=== PATIENT | female | born 1995 | race Two or more races ===

== ENCOUNTER 2017-05-05 02:30 | Emergency (ER) | payer SELFPAY ==
--- NOTE | 2017-05-05 03:50 | ER Document Report ---
ED General - General Chief Complaint: Abdominal Pain Stated Complaint: ABDOMINAL PAIN WITH NAUSEA Time Seen by Provider: 05/05/17 03:07 Notes: Patient is a 22-year-old female presents with complaint of pain is mainly in the right lower quadrant. She says she has had this pain several times over the course of several months. She said each time it lasts usually a few hours. Today went on more than 4 hours no where she came to the ER. No vomiting. No diarrhea. No fevers. No abnormal vaginal discharge or bleeding. No dysuria. She is sexually active. She does not use control. She does not think she is . No other complaints at this time. TRAVEL OUTSIDE OF THE [place] IN LAST 30 DAYS: No - Related Data Allergies/Adverse Reactions: No Known Allergies Allergy (Unverified 05/05/17 04:43) Past Medical History - Social History Smoking Status: Never Smoker Frequency of alcohol use: None Drug Abuse: None Family History: Reviewed & Not Pertinent Review of Systems - Review of Systems Notes: My Normal Review Basic REVIEW OF SYSTEMS: CONSTITUTIONAL : Denies fever, chills, or sweats. Denies recent illness. RESPIRATORY: Denies cough, cold, or chest congestion. Denies shortness of breath, difficulty breathing, or wheezing. GASTROINTESTINAL: Right lower abdominal pain. Denies nausea, vomiting, or diarrhea. GENITOURINARY: Denies difficulty urinating, painful urination, burning, frequency, or blood in urine. FEMALE GENITOURINARY: Denies vaginal bleeding, abnormal or irregular periods. MUSCULOSKELETAL: Denies neck or back pain or joint pain or swelling. SKIN: Denies rash or skin lesions. NEUROLOGICAL: Denies altered mental status or loss of consciousness. Denies headache. Denies weakness or paralysis or loss of use of either side. Denies problems with gait or speech. Denies sensory or motor loss. ALL OTHER SYSTEMS REVIEWED AND NEGATIVE. Physical Exam - Vital signs Vitals: Temp Pulse Resp BP Pulse Ox 98.3 F 95 17 128/84 H 97 05/05/17 02:30 05/05/17 02:30 05/05/17 02:30 05/05/17 02:30 05/05/17 02:30 - Notes Notes: General Appearance: Well nourished, alert, cooperative, no acute distress, no obvious discomfort. Well appearing. Vitals: reviewed, See vital signs table. Head: no swelling or tenderness to the head Eyes: PERRL, EOMI, Conjuctiva clear Mouth: No decreasd moisture Lungs: No wheezing, No rales, No rhonci, No accessory muscle use, good air exchange bilaterally. Heart: Normal rate, Regular rythm, No murmur, no rub Abdomen: Normal BS, soft, No rigidity, patient does not have pain made by me pushing of her abdomen. When I push over the right lower quadrant where her pain is she says that the pushing on her abdomen does not make her pain any worse than it is without me pushing on her abdomen., No guarding, no rebound, no abdominal masses, no organomegaly Extremities: strength 5/5 in all extremities, good pulses in all extremities, no swelling or tenderness in the extremities, no edema. Skin: warm, dry, appropriate color, no rash Neuro: speech clear, oriented x 3, normal affect, responds appropriately to questions. Course - Re-evaluation Re-evalutation: 05/05/17 06:45 Patient has a large right ovarian cyst. This makes sense with her history of recurrent pain over last several months over the right lower portion of her abdomen. She has good flow to the ovary. No evidence of torsion. I encouraged her follow-up with a spindle setter. I talked about the importance of following up and also to have repeat ultrasound in 6-12 weeks. I informed her that it is unlikely to be cancerous however this cannot be fully ruled out without repeat ultrasounds. Also informed her that the spindle setter can talk about further treatment options in regards to her cyst if it continues to cause her pain. I talked about ovarian torsion informed her that having large ovarian cyst is a risk factor for torsion therefore she has severe onset of pain that she must return to ER immediately. Patient agrees with plan will be discharged home. Dictation of this chart was performed using voice recognition software; therefore, there may be some unintended grammatical errors. - Vital Signs Vital signs: Temp Pulse Resp BP Pulse Ox 98.3 F 95 17 128/84 H 97 05/05/17 02:30 05/05/17 02:30 05/05/17 02:30 05/05/17 02:30 05/05/17 02:30 - Laboratory Result Diagrams: 05/05/17 03:45 05/05/17 03:45 Laboratory results interpreted by me: 05/05/17 05/05/17 05/05/17 03:45 03:45 04:06 WBC 11.9 H RBC 5.34 H Hgb 11.3 L MCV 68 L MCH 21.1 L MCHC 31.2 L RDW 16.9 H Seg Neutrophils % 78.9 H Absolute Neutrophils 9.4 H Glucose 119 H Urine Protein 30 H Urine Urobilinogen 2.0 H Discharge - Discharge Clinical Impression: Ovarian cyst Qualifiers: Laterality: right Qualified Code(s): N83.201 - Unspecified ovarian cyst, right side Abdominal pain Qualifiers: Abdominal location: right lower quadrant Qualified Code(s): R10.31 - Right lower quadrant pain Condition: Good Disposition: HOME, SELF-CARE Additional Instructions: You have a large ovarian cyst on the right side. This is the likely cause of your recurrent pain. Please be aware that a large cyst can sometimes cause a twisting of the ovary that leads to decreased blood flow to the ovary, This would cause severe pain. If you have sudden onset severe pain, fevers, heavy vaginal bleeding, or vomiting, you must return to the ER immediately. You should have a repeat ultrasound in 6-12 weeks to make sure the cyst is not increasing in size and not having any concerning changes. Please call the Senior [facility]ris Analyst to make a close follow up appointment for reevaluation and further treatment options. Referrals: OTILIO GERARDO MD [ACTIVE STAFF] - Follow up as needed
[2017-05-05 03:55] LABS: ABSOLUTE BASOPHILS # (AUTO) 0.1 10^3/uL (0.0-0.2); ABSOLUTE EOSINOPHILS # (AUTO) 0.1 10^3/uL (0.0-0.6); ABSOLUTE LYMPHOCYTES (AUTO) 1.8 10^3/uL (0.5-4.7); ABSOLUTE MONOCYTES (AUTO) 0.5 10^3/uL (0.1-1.4); ABSOLUTE NEUT (AUTO) 9.4 10^3/uL (1.7-8.2); BASOPHILS % (AUTO) 0.6 % (0-2); EOSINOPHILS % (AUTO) 1.1 % (0-6); HEMATOCRIT 36.2 % (36.0-47.0); HEMOGLOBIN 11.3 g/dL (12.0-15.5); HGB HCT DIFFERENCE -2.3; LYMPHOCYTES % (AUTO) 14.9 % (13-45); MEAN CORPUSCULAR HEMOGLOBIN 21.1 pg (27.0-33.4); MEAN CORPUSCULAR HGB CONC 31.2 g/dL (32.0-36.0); MEAN CORPUSCULAR VOLUME 68 fl (80-97); MONOCYTES % (AUTO) 4.5 % (3-13); RED BLOOD COUNT 5.34 10^6/uL (3.72-5.28); RED CELL DISTRIBUTION WIDTH 16.9 % (11.5-14.0); SEGMENTED NEUTROPHILS % (AUTO) 78.9 % (42-78); WHITE BLOOD COUNT 11.9 10^3/uL (4.0-10.5)
[2017-05-05 04:09] LABS: ALANINE AMINOTRANSFERASE 26 U/L (9-52); ALBUMIN 4.5 g/dL (3.5-5.0); ALKALINE PHOSPHATASE 95 U/L (38-126); ANION GAP 16 (5-19); ASPARTATE AMINO TRANSFERASE 20 U/L (14-36); BILIRUBIN,DIRECT 0.2 mg/dL (0.0-0.4); BILIRUBIN,TOTAL 0.3 mg/dL (0.2-1.3); BLOOD UREA NITROGEN 10 mg/dL (7-20); CALCIUM 9.9 mg/dL (8.4-10.2); CARBON DIOXIDE 23 mmol/L (22-30); CHLORIDE 105 mmol/L (98-107); CREATININE RESULT 0.71 mg/dL (0.52-1.25); GLUCOSE 119 mg/dL (75-110); POTASSIUM 3.9 mmol/L (3.6-5.0); TOTAL PROTEIN 7.9 g/dL (6.3-8.2)
[2017-05-05] MEDS ORDERED: KETOROLAC TROMETHAMINE INJ/PF 30 MG/1 ML SDV IV ONE (04:47)
[2017-05-05 04:50] LABS: AMORPHOUS SEDIMENT,URINE TRACE /HPF; APPEARANCE,URINE CLOUDY; BILIRUBIN,URINE NEGATIVE (NEGATIVE); GLUCOSE, URINE NEGATIVE (NEGATIVE); KETONES,URINE NEGATIVE (NEGATIVE); LEUKOCYTE ESTERASE,URINE NEGATIVE (NEGATIVE); NITRITE,URINE NEGATIVE (NEGATIVE); PROTEIN,URINE 30 mg/dL (NEGATIVE); URINE SPECIFIC GRAVITY 1.031
[2017-05-05] MEDS ORDERED: KETOROLAC TROMETHAMINE INJ/PF 30 MG/1 ML SDV IM ONE (04:59)
--- NOTE | 2017-05-05 06:26 | RADIOLOGY REPORT (SQ) ---
EXAM DESCRIPTION: U/S NON OB PEL TV W/DOPPLER CLINICAL HISTORY: 22 years, Female, right sided pain COMPARISON: None. TECHNIQUE: Transvaginal. LIMITATIONS: None. FINDINGS: 7.8 cm uterus, 0.1 cm thick endometrial stripe, 3.1 cm cervical length, 5.9 cm right ovary with 5.3 x 4.9 x 3.6 cm probably benign mildly complex avascular cystic component, and 2.6 cm left ovary appear otherwise normal size, shape, echotexture, and vascularity. No significant free fluid. IMPRESSION: 1. A 5.3 cm probably benign cystic component of the right ovary may indicate a hemorrhagic cyst or endometrioma. Cannot exclude other neoplasm. Ultrasound follow-up recommended in 6-12 weeks. Right ovary is at increased risk for developing torsion. 2. Endometrial hypoplasia. 2011 [employer]- All Rights Reserved
[2017-05-05 06:47] VITALS: BP 116/65
== END 2017-05-05 06:47 | disposition home or self-care (01) ==
LOC: ER 02:30
DX: N83.201 Unspecified ovarian cyst, right side (principal); R10.31 Right lower quadrant pain
CPT/HCPCS: 99284; 96372; 36415; 84703; 85025; 80053; 81001; 76830; 93976; J1885

== ENCOUNTER 2017-06-28 21:38 | Emergency (ER) | payer SELFPAY ==
[2017-06-29] MEDS ORDERED: ONDANSETRON HCL INJ/PF 4 MG/2 ML SDV IV ONE (00:04)
[2017-06-29] MEDS ORDERED: FENTANYL CITRATE INJ/PF 100 MCG/2 ML AMPUL IV ONE (00:04)
--- NOTE | 2017-06-29 00:06 | ER Document Report ---
ED General - General Chief Complaint: Abdominal Pain Stated Complaint: RIGHT SIDE PAIN Time Seen by Provider: 06/28/17 23:44 Mode of Arrival: Ambulatory Information source: Patient Notes: 22-year-old female history of right-sided ovarian cyst diagnosed in April presents with complaints of continued pain. Patient notes that the pain has been constant for the past month associated with intermittent nausea. Denies any fevers or chills notes the pain has worsened over the past 2 days with vomiting TRAVEL OUTSIDE OF THE [place] IN LAST 30 DAYS: No - HPI Onset: Other Onset/Duration: Persistent, Worse Quality of pain: Cramping Severity: Mild Pain Level: 1 Associated symptoms: Nausea, Vomiting Exacerbated by: Denies Relieved by: Denies Similar symptoms previously: Yes Recently seen / treated by doctor: Yes - Related Data Allergies/Adverse Reactions: No Known Allergies Allergy (Unverified 05/05/17 04:43) Past Medical History - Social History Smoking Status: Former Smoker Cigarette use (# per day): No Chew tobacco use (# tins/day): No Smoking Education Provided: No Frequency of alcohol use: None Drug Abuse: None Family History: Reviewed & Not Pertinent Patient has suicidal ideation: No Patient has homicidal ideation: No Renal/ Medical History: Denies: Hx Peritoneal Dialysis Review of Systems - Review of Systems Notes: REVIEW OF SYSTEMS: CONSTITUTIONAL : Denies fever, chills, or sweats. Denies recent illness. EENT: Denies eye, ear, throat, or mouth pain or symptoms. Denies nasal or sinus congestion or discharge. Denies throat, tongue, or mouth swelling or difficulty swallowing. CARDIOVASCULAR: Denies chest pain. Denies palpitations or racing or irregular heart beat. Denies ankle edema. RESPIRATORY: Denies cough, cold, or chest congestion. Denies shortness of breath, difficulty breathing, or wheezing. GASTROINTESTINAL: Admits to right lower quadrant abdominal pain GENITOURINARY: Denies difficulty urinating, painful urination, burning, frequency, blood in urine, or discharge. FEMALE GENITOURINARY: Denies vaginal bleeding, heavy or abnormal periods, irregular periods. Denies vaginal discharge or odor. MUSCULOSKELETAL: Denies back or neck pain or stiffness. Denies joint pain or swelling. SKIN: Denies rash, lesions or sores. HEMATOLOGIC : Denies easy bruising or bleeding. LYMPHATIC: Denies swollen, enlarged glands. NEUROLOGICAL: Denies confusion or altered mental status. Denies passing out or loss of consciousness. Denies dizziness or lightheadedness. Denies headache. Denies weakness or paralysis or loss of use of either side. Denies problems with gait or speech. Denies sensory loss, numbness, or tingling. Denies seizures. PSYCHIATRIC: Denies anxiety or stress. Denies depression, suicidal ideation, or homicidal ideation. ALL OTHER SYSTEMS REVIEWED AND NEGATIVE. PHYSICAL EXAMINATION: GENERAL: Well-appearing, well-nourished and in no acute distress. HEAD: Atraumatic, normocephalic. EYES: Pupils equal round and reactive to light, extraocular movements intact, conjunctiva are normal. ENT: Nares patent, oropharynx clear without exudates. Moist mucous membranes. NECK: Normal range of motion, supple without lymphadenopathy LUNGS: Breath sounds clear to auscultation bilaterally and equal. No wheezes rales or rhonchi. HEART: Regular rate and rhythm without murmurs ABDOMEN: Soft, nontender, nondistended abdomen. It is tender in the right pelvic region no guarding, no rebound. No masses appreciated. Female : deferred Musculoskeletal: Normal range of motion, no pitting or edema. No cyanosis. NEUROLOGICAL: Cranial nerves grossly intact. Normal speech, normal gait. Normal sensory, motor exams PSYCH: Normal mood, normal affect. SKIN: Warm, Dry, normal turgor, no rashes or lesions noted. Dictation was performed using [employer] voice recognition software Physical Exam - Vital signs Vitals: Temp Pulse Resp BP Pulse Ox 98.8 F 86 19 137/77 H 99 06/28/17 22:09 06/28/17 22:09 06/28/17 22:09 06/28/17 22:09 06/28/17 22:09 Course - Re-evaluation Re-evalutation: 06/29/17 00:06 Lab work pending, will rule out ovarian torsion. Low suspicion for intra- abdominal source 06/29/17 01:[address] Strong , regarding lab results, signs of dehydration vomiting, consistnat ovarian cyst, he requests fluids an dfollow up in the office 06/29/17 01:55 Patient has follow-up at [facility] on Sunday she will be given reports and close follow-up After performing a Medical Screening Examination, I estimate there is LOW risk for ACUTE APPENDICITIS, BOWEL OBSTRUCTION, ACUTE CHOLECYSTITIS, PERFORATED DIVERTICULITIS, INCARCERATED HERNIA, PANCREATITIS, PELVIC INFLAMMATORY DISEASE, PERFORATED ULCER, ECTOPIC , or TUBO-OVARIAN ABSCESS, thus I consider the discharge disposition reasonable. Also, there is no evidence or peritonitis , sepsis, or toxicity. I have reevaluated this patient multiple times and no significant life threatening changes are noted. The patient and I have discussed the diagnosis and risks, and we agree with discharging home with close follow-up with the understanding that symptoms and presentations can change. We also discussed returning to the Emergency Department immediately if new or worsening symptoms occur. We have discussed the symptoms which are most concerning (e.g., bloody stool, fever, changing or worsening pain, vomiting) that necessitate immediate return. - Vital Signs Vital signs: Temp Pulse Resp BP Pulse Ox 98.8 F 90 20 125/77 100 06/28/17 22:09 06/29/17 00:11 06/29/17 00:11 06/29/17 00:11 06/29/17 00:11 - Laboratory Result Diagrams: 06/29/17 00:05 06/29/17 00:05 Laboratory results interpreted by me: 06/29/17 06/29/17 06/29/17 00:05 00:05 01:02 WBC 16.3 H RBC 5.66 H MCV 67 L MCH 21.5 L RDW 17.2 H Seg Neutrophils % 88.8 H Lymphocytes % 8.0 L Absolute Neutrophils 14.5 H Glucose 111 H Calcium 10.7 H Total Protein 8.9 H Urine Ketones 80 H - Diagnostic Test Radiology reviewed: Image reviewed, Reports reviewed Discharge - Discharge Clinical Impression: Ovarian cyst Qualifiers: Laterality: right Qualified Code(s): N83.201 - Unspecified ovarian cyst, right side Nausea & vomiting Qualifiers: Vomiting type: unspecified Vomiting Intractability: non-intractable Qualified Code(s): R11.2 - Nausea with vomiting, unspecified Condition: Stable Disposition: HOME, SELF-CARE Instructions: Ovarian Cyst ([facility]) Additional Instructions: Please follow up with your obgyn or return immediately if there are any other concerns Prescriptions: Metoclopramide HCl [Reglan 10 mg Tablet] 1 - 2 tab PO ASDIR PRN #25 tablet PRN Reason: Oxycodone HCl/Acetaminophen [Percocet 5-325 mg Tablet] 1 - 2 tab PO Q4H PRN #15 tablet PRN Reason:
[2017-06-29 01:00] LABS: ABSOLUTE LYMPHOCYTES (AUTO) 1.3 10^3/uL (0.5-4.7); ABSOLUTE MONOCYTES (AUTO) 0.5 10^3/uL (0.1-1.4); ABSOLUTE NEUT (AUTO) 14.5 10^3/uL (1.7-8.2); BASOPHILS % (AUTO) 0.2 % (0-2); HEMATOCRIT 38.1 % (36.0-47.0); HEMOGLOBIN 12.2 g/dL (12.0-15.5); MEAN CORPUSCULAR HEMOGLOBIN 21.5 pg (27.0-33.4); MEAN CORPUSCULAR VOLUME 67 fl (80-97); PLATELET COUNT 434 10^3/uL (150-450); RED BLOOD COUNT 5.66 10^6/uL (3.72-5.28); RED CELL DISTRIBUTION WIDTH 17.2 % (11.5-14.0); SEGMENTED NEUTROPHILS % (AUTO) 88.8 % (42-78); TOTAL CELLS COUNTED % (AUTO) 100 %; WHITE BLOOD COUNT 16.3 10^3/uL (4.0-10.5)
--- NOTE | 2017-06-29 01:08 | RADIOLOGY REPORT (SQ) ---
EXAM DESCRIPTION: U/S NON OB PEL TV W/DOPPLER CLINICAL HISTORY: 22 years, Female, RLQ pain , hx ovarian cyst COMPARISON: May 05, 2017. TECHNIQUE: Transabdominal. LIMITATIONS: None. FINDINGS: 5.5 x 5.4 x 4.5 cm right ovary contains a 5.1 x 4.7 x 3.9 cm complex cystic mass without significant interval change compared to prior exam from May 05, 2017. 3.7 cm left ovary contains a 1.8 x 1.8 x 1.2 cm hypoechoic homogeneous cystic component. Vascularity of the ovaries is present. Small free fluid. 8.3 cm uterus, 1.2 cm thick endometrial stripe follicle are otherwise unremarkable. IMPRESSION: Persistent 5.1 cm right ovarian cystic mass; differential diagnosis includes endometrioma and benign neoplasm. There is increased risk for developing right ovarian torsion. Recommend ACQUISITION ANALYST consultation.
[2017-06-29 01:11] LABS: ALANINE AMINOTRANSFERASE 33 U/L (9-52); ALKALINE PHOSPHATASE 93 U/L (38-126); ANION GAP 16 (5-19); ASPARTATE AMINO TRANSFERASE 26 U/L (14-36); BILIRUBIN,DIRECT 0.4 mg/dL (0.0-0.4); BILIRUBIN,TOTAL 0.5 mg/dL (0.2-1.3); BLOOD UREA NITROGEN 10 mg/dL (7-20); CALCIUM 10.7 mg/dL (8.4-10.2); CARBON DIOXIDE 22 mmol/L (22-30); CHLORIDE 102 mmol/L (98-107); GLUCOSE 111 mg/dL (75-110); POTASSIUM 3.9 mmol/L (3.6-5.0); TOTAL PROTEIN 8.9 g/dL (6.3-8.2)
[2017-06-29 01:27] LABS: APPEARANCE,URINE SLIGHTLY-CLOUDY; BILIRUBIN,URINE NEGATIVE (NEGATIVE); COLOR,URINE YELLOW; GLUCOSE, URINE NEGATIVE (NEGATIVE); KETONES,URINE 80 mg/dL (NEGATIVE); LEUKOCYTE ESTERASE,URINE NEGATIVE (NEGATIVE); NITRITE,URINE NEGATIVE (NEGATIVE); PROTEIN,URINE NEGATIVE (NEGATIVE); UROBILINOGEN,URINE NEGATIVE mg/dL (<2.0)
[2017-06-29] MEDS ORDERED: NORMAL SALINE 1000 ML 1,000 ML IV ONE (01:32)
[2017-06-29] MEDS ORDERED: METOCLOPRAMIDE HCL INJ/PF 10 MG/2 ML SDV IV ONE (01:34)
[2017-06-29] MEDS ORDERED: HYDROMORPHONE HCL INJ/PF 2 MG/ML AMPULE IV ONE (01:34)
[2017-06-29 02:36] VITALS: BP 125/71
== END 2017-06-29 02:40 | disposition home or self-care (01) ==
LOC: ER 21:38
DX: N83.201 Unspecified ovarian cyst, right side (principal); R11.2 Nausea with vomiting, unspecified; R10.31 Right lower quadrant pain; Z87.891 Personal history of nicotine dependence
CPT/HCPCS: 99284; 96361; 96374; 96375; 36415; 83690; 85025; 81025; 80053; 81001; 76830; 93976; J3010; J2765; J1170; J2405; J7030